=== PATIENT | female | born 1940 | race Caucasian/White ===

== ENCOUNTER 2016-10-28 14:28 | Emergency (ER) | payer OTHER ==
--- NOTE | 2016-10-28 15:36 | EDPHY ---
H & P Stated Complaint: Lip/facial swelling today;on nata inhibitor Time Seen by Provider: 10/28/16 15:33 HPI/ROS: CHIEF COMPLAINT: Upper lip swelling. HISTORY OF PRESENT ILLNESS: The patient is a 76-year-old female on Lisinopril who presents with upper lip swelling since this morning at 0900. She had a similar episode a week ago that she thought was from Lee's VapoRub. The symptoms resolved on their own. She did not use any of this today prior to the symptoms. The only difference in her diet was drinking almond milk. She denies oral swelling, tongue swelling, difficulty swallowing, rash, shortness of breath , or recent dental work. No fever, chills, chest pain, palpitations, vomiting, diarrhea, urinary complaints, headache, lightheadedness. REVIEW OF SYSTEMS: Aside from elements discussed in the HPI, a comprehensive 10-point review of systems was reviewed and is negative. PAST MEDICAL HISTORY: Cardiac stents, hypertension. SOCIAL HISTORY: Here with daughter. VITAL SIGNS: Reviewed by me. GENERAL: Well-developed, well-nourished, resting comfortably in no respiratory distress. HEENT: Atraumatic. Eyes: No icterus, no injection. Swollen upper lip with angioedema. Mouth: moist mucous membranes. No tenderness/ fullness beneath tongu. No uvula swelling. No tongue swelling. No erythema or lesions. Neck: supple with no adenopathy. LUNGS: Clear to auscultation bilaterally, no wheezes, rhonchi or rales. CARDIAC: Regular rate and rhythm, no rubs, murmurs or gallops. ABDOMEN: Soft, nontender, nondistended, bowel sounds normal. BACK: No CVA tenderness. EXTREMITIES: No trauma. No edema. Range of motion is normal throughout. NEURO: Alert and oriented, grossly nonfocal. SKIN: Warm and dry, no rash. PSYCHIATRIC: Normal mentation, no agitation. Portions of this note were transcribed by a medical billing instructor. I personally performed a history, physical exam, medical decision making, and confirmed accuracy of information the transcribed note. Source: Patient Exam Limitations: No limitations - Personal History Current Tetanus Diphtheria and Acellular Pertussis (TDAP): Unsure - Medical/Surgical History Hx Asthma: No Hx Chronic Respiratory Disease: No Hx Diabetes: No Hx Cardiac Disease: Yes Hx Renal Disease: No Hx Cirrhosis: No Hx Alcoholism: No Hx HIV/AIDS: No Hx Splenectomy or Spleen Trauma: No Other PMH: cardiac stents/htn - Social History Smoking Status: Former smoker Constitutional: Initial Vital Signs Temperature (C) 36.9 C 10/28/16 14:35 Heart Rate 65 10/28/16 14:35 Respiratory Rate 18 10/28/16 14:35 Blood Pressure 157/85 H 10/28/16 14:35 O2 Sat (%) 95 10/28/16 14:35 O2 Delivery Mode Room Air Allergies/Adverse Reactions: celecoxib [From Celebrex] Allergy (Severe, Verified 07/06/15 08:42) facial swelling Sulfa (Sulfonamide Antibiotics) [Sulfa(Sulfonamide Antibiotics)] Allergy (Severe , Verified 07/06/15 08:42) facial swelling Oehgmxe-Owv-Tnt Reductase Inhibitor Allergy (Intermediate, Verified 07/06/15 08: 42) Weakness tomato [Tomato] Allergy (Intermediate, Verified 07/06/15 08:42) Rash erythromycin base [From Staticin] Allergy (Verified 07/06/15 08:42) ethyl alcohol [From Staticin] Allergy (Verified 07/06/15 08:42) celantro Allergy (Intermediate, Uncoded 07/06/15 08:42) Swelling/neck,face,throat statin Allergy (Uncoded 07/06/15 08:42) Home Medications: Medication Instructions Recorded Lisinopril [Zestril 10 mg (*)] 10 mg PO HS 11/02/13 Albuterol [Proventil Inhaler HFA 1 - 2 puffs IH Q4H PRN 07/06/15 (*)] Nitroglycerin [Nitrostat 0.4 mg 0.4 mg SL PRN PRN 07/06/15 (*)] Medical Decision Making ED Course/Re-evaluation: Given prednisone and benadryl. Suspect this is related to lisinopril. Will not give subq epi in light of age and cardiovascular risk factors. Doubt allergic reaction or anaphylaxis. Observed x 1 hour. Swelling improving. No oral involvement. Looks well. Understand importance of follow up tomorrow to start a new anti-hypertensive. Understands importance of stopping lisinopril at once. Comfortable with plan. Differential Diagnosis: Diff dx considered included lisinopril reaction, local bite or contact reaction , allergic reaction, anaphylaxis, hereditary angioedema. - Data Points Medications Given: Discontinued Medications Diphenhydramine HCl (Benadryl) 25 mg PO EDNOW ONE Stop: 10/28/16 15:51 Last Admin: 10/28/16 15:58 Dose: 25 mg Prednisone (Prednisone) 60 mg PO EDNOW ONE Stop: 10/28/16 15:51 Last Admin: 10/28/16 15:58 Dose: 60 mg Departure - Departure Disposition: Home, Routine, Self-Care Clinical Impression: Adverse effect of lisinopril Angioedema Qualifiers: Qualifier Code: (T78.3XXA) Angioneurotic edema, initial encounter Condition: Good Instructions: Angioedema (ED) Additional Instructions: Discontinue use of your Lisinopril. YOU SHOULD NOT TAKE ANY FURTHER MEDICATIONS IN NATA INHIBITOR CLASSIFICATION. Take Benadryl 50 mg every 8 hours as needed for recurrent swelling. Call Dr. Tai tomorrow for reevaluation of your medications. Return to the emergency department if you experience any serious worsening of condition. Referrals: Lane Tai MD [Medical Doctor] - As per Instructions Report Scribed for: Barb Mendez Report Scribed by: Jeremie Robertson Date of Report: 10/28/16 Time of Report: 15:36
[2016-10-28] MEDS ORDERED: diphenhydrAMINE 25 MG CAP PO ONE (15:50)
[2016-10-28] MEDS ORDERED: predniSONE 20 MG TAB PO ONE (15:50)
[2016-10-28 17:03] VITALS: BP 150/92; PULSE 83; RESP 20; TEMP 98.2; O2SAT 94
== END 2016-10-28 17:03 | disposition home or self-care (01) ==
DX: T78.3XXA Angioneurotic edema, initial encounter (principal); T46.4X5A Adverse effect of angiotensin-converting-enzyme inhibitors, initial encounter; I10 Essential (primary) hypertension; Z95.5 Presence of coronary angioplasty implant and graft; Z87.891 Personal history of nicotine dependence

== ENCOUNTER → 2017-10-07 | Outpatient (CLI) | payer OTHER | LOC: BHFA 13:00 | PROVIDERS: ATTEND Internal Medicine Cardiovascular Disease | DX: I25.10 Atherosclerotic heart disease of native coronary artery without angina pectoris (principal); I44.7 Left bundle-branch block, unspecified | CPT/HCPCS: 78452; 93017; A9500; J2785 ==

== ENCOUNTER → 2018-10-24 | Outpatient (CLI) | payer OTHER | LOC: FIMAGING 10:47 | PROVIDERS: ATTEND Internal Medicine | DX: S32.020A Wedge compression fracture of second lumbar vertebra, initial encounter for closed fracture (principal); S32.040A Wedge compression fracture of fourth lumbar vertebra, initial encounter for closed fracture; S32.050A Wedge compression fracture of fifth lumbar vertebra, initial encounter for closed fracture; S33.140A Subluxation of L4/L5 lumbar vertebra, initial encounter; M51.35 Other intervertebral disc degeneration, thoracolumbar region; M51.36 Other intervertebral disc degeneration, lumbar region ==

== ENCOUNTER → 2018-10-31 | Outpatient (CLI) | payer OTHER | LOC: FIMAGING 11:06 | PROVIDERS: ATTEND Internal Medicine | DX: M81.0 Age-related osteoporosis without current pathological fracture (principal); M85.80 Other specified disorders of bone density and structure, unspecified site ==

== ENCOUNTER → 2019-03-12 | Outpatient (CLI) | payer OTHER | LOC: FIMAGING 15:18 ==